=== PATIENT | male | born 2000 | race Caucasian/White ===

== ENCOUNTER 2019-11-13 08:08 | Observation (INO) | payer OTHER ==
[2019-11-13] MEDS ORDERED: NS 1,000 ML IV SCH (09:45)
[2019-11-13] MEDS ORDERED: ONDANSETRON 4MG/2ML VIAL IV PRN ×2 (09:45→18:45)
[2019-11-13] MEDS ORDERED: MORPHINE 2 MG/ML 1ML VIAL (J2270) IV PRN (09:45)
[2019-11-13] MEDS ORDERED: ONDANSETRON 4MG/2ML VIAL IV ONE (09:45)
[2019-11-13] MEDS ORDERED: MULT-4 PO (09:51)
--- NOTE | 2019-11-13 09:57 | REP ---
RIGHT WRIST, FOUR VIEWS: Four views of the right wrist are performed. There is a fracture of the distal radial shaft with medial displacement and anterior displacement. There is lateral angulation. Small calcific density distal to the ulna probably represents an old avulsion fracture. No other acute fracture or dislocation is seen. Electronically Signed by Arturo Mott MD 11/13/2019 04:39 P
--- NOTE | 2019-11-13 09:58 | REP ---
RIGHT FOREARM, TWO VIEWS: Two views of the right forearm performed. There is a fracture of the distal third of the radial shaft. There is medial displacement and lateral angulation. No other acute fracture or dislocation is seen. Electronically Signed by Arturo Mott MD 11/13/2019 04:39 P
[2019-11-13] MEDS: MORPHINE 2 MG/ML 1ML VIAL (J2270) IV PRN ×2 (09:59→12:17)
[2019-11-13] MEDS: NS 1,000 ML IV SCH ×3 (10:02→21:18)
--- NOTE | 2019-11-13 10:02 | REP ---
CT CERVICAL SPINE: CT cervical spine performed with sagittal and coronal reconstruction images. The vertebral bodies are normal in height and are well aligned with normal cervical lordosis. There is no prevertebral soft tissue swelling. Disc spaces are well preserved. No abnormal density is seen in the spinal canal. IMPRESSION: No evidence of acute fracture or dislocation. Electronically Signed by Arturo Mott MD 11/13/2019 04:39 P
[2019-11-13 10:36] LABS: BASO # 0.1 10^3/uL (0.0-0.2); BASO % 0.3 % (0.0-1.0); EOS % 0.1 % (0.0-3.0); HEMATOCRIT 44.2 % (42.0-52.0); HEMOGLOBIN 15.4 g/dl (13.5-17.5); LYMPH # 1.5 10^3/uL (1.5-5.0); LYMPH % 9.2 % (24.0-44.0); MEAN CORPUSCULAR HEMOGLOBIN 30.9 pg (27.0-33.0); MEAN CORPUSCULAR HGB CONC 34.8 g/dl (32.0-36.5); MEAN CORPUSCULAR VOLUME 88.8 fl (80.0-96.0); MONO # 0.8 10^3/uL (0.0-0.8); MONO % 5.3 % (0.0-5.0); NEUTROPHILS # 13.3 10^3/uL (1.5-8.5); NEUTROPHILS % 84.1 % (36.0-66.0); PLATELET COUNT, AUTOMATED 268 10^3/uL (150-450); RED BLOOD COUNT 4.98 10^6/uL (4.30-6.10); WHITE BLOOD COUNT 15.8 10^3/uL (4.0-10.0)
--- NOTE | 2019-11-13 10:53 | REP ---
CHEST, SINGLE VIEW: There is no evidence of acute infiltrate. No pleural effusion is seen. The heart is normal in size. The mediastinal silhouette is unremarkable. The visualized osseous structures are intact. IMPRESSION: No acute pulmonary disease. Electronically Signed by Arturo Mott MD 11/13/2019 04:40 P
--- NOTE | 2019-11-13 10:54 | REP ---
RIGHT ELBOW, FOUR VIEWS: Four views of the right elbow are performed. There is no acute fracture or dislocation at the elbow. Note is made of the fracture of the distal third of the radial shaft, which is displaced and angulated. IMPRESSION: No evidence of fracture at the elbow. There is a distal radial fracture. Electronically Signed by Arturo Mott MD 11/13/2019 04:40 P
[2019-11-13 11:00] LABS: BLOOD UREA NITROGEN 20 MG/DL (7-18); CALCIUM LEVEL 8.7 MG/DL (8.5-10.1); CARBON DIOXIDE LEVEL 29 MEQ/L (21-32); CHLORIDE LEVEL 106 MEQ/L (98-107); CREATININE FOR GFR 0.93 MG/DL (0.70-1.30); GLUCOSE, FASTING 100 MG/DL (70-100); SODIUM LEVEL 141 MEQ/L (136-145)
[2019-11-13 11:37] VITALS: BP 123/80
[2019-11-13] MEDS: oxyCODONE 5MG TAB PO PRN (12:16)
[2019-11-13 14:53] VITALS: BP 133/66
[2019-11-13] MEDS ORDERED: LIDOCAINE 2% 100MG/5ML SDV (FOR ANES.) As Ordered ONE (16:18)
[2019-11-13] MEDS ORDERED: propofoL 200 MG/20 ML VIAL As Ordered ONE ×2 (16:18→17:39)
[2019-11-13] MEDS ORDERED: fentaNYL 100 MCG/2 ML INJECTION (J3010) As Ordered ONE ×2 (16:19→18:58)
[2019-11-13] MEDS ORDERED: dexameTHASONE 4 MG/ML 1ML VIAL (J1100 PER 1MG) As Ordered ONE (16:19)
[2019-11-13] MEDS ORDERED: ONDANSETRON 4MG/2ML VIAL As Ordered ONE ×2 (16:19→18:58)
[2019-11-13] MEDS ORDERED: MIDAZOLAM INJ 2MG/2ML VIAL (J2250 PER 1MG) As Ordered ONE (16:19)
[2019-11-13] MEDS ORDERED: BUPIVACAINE/EPIN 0.25% 30 ML VIAL As Ordered ONE (17:04)
[2019-11-13] MEDS ORDERED: ceFAZolin 2 GM/D5W 50 ML IV BAG (J0690 PER 500MG) As Ordered ONE (17:04)
[2019-11-13] MEDS ORDERED: KETOROLAC 60 MG/2 ML VIAL As Ordered ONE (17:51)
[2019-11-13] MEDS ORDERED: ACETAMINOPHEN 1000MG 100ML IV BTL (OFIRMEV) (J0131 PER 10MG) As Ordered ONE (17:51)
[2019-11-13] MEDS ORDERED: PERCOCET 5MG/325MG TAB PO PRN (18:45)
[2019-11-13] MEDS ORDERED: HYDROMORPHONE HCL 0.5 MG/ 0.5 ML SYRINGE (J1170 PER 1) IV PRN (18:45)
[2019-11-13] MEDS ORDERED: LR 1,000 ML IV SCH (18:45)
[2019-11-13] MEDS ORDERED: fentaNYL 100 MCG/2 ML INJECTION (J3010) IV PRN (18:45)
[2019-11-13] MEDS ORDERED: MEPERIDINE INJ 25 MG/ML VIAL (J2175) As Ordered ONE (18:52)
[2019-11-13] MEDS ORDERED: MEPERIDINE INJ 25 MG/ML VIAL (J2175) IV PRN (19:00)
[2019-11-13] MEDS ORDERED: diphenhydrAMINE 50MG/ML VIAL (J1200) As Ordered ONE (19:05)
[2019-11-13] MEDS ORDERED: PERCOCET 5MG/325MG TAB As Ordered ONE (19:15)
[2019-11-13] MEDS ORDERED: diphenhydrAMINE 50MG/ML VIAL (J1200) IV SCH (19:30)
[2019-11-13 20:20] VITALS: BP 100/68
[2019-11-13 20:50] VITALS: BP 128/83
[2019-11-13 21:50] VITALS: BP 130/84
[2019-11-13 23:03] VITALS: BP 132/63
[2019-11-14] VITALS: BP 133/65
[2019-11-14] MEDS: ceFAZolin SOD 1 GM in D5W MINI-BAG PLUS 50 ML IV SCH ×3 (00:17→12:38)
[2019-11-14] MEDS: oxyCODONE 5MG TAB PO PRN ×2 (00:18→08:56)
[2019-11-14 01:00] VITALS: BP 132/62
--- NOTE | 2019-11-14 03:35 | CR ---
DATE OF CONSULTATION: 11/13/2019 CHIEF COMPLAINT: Right arm pain. HISTORY OF PRESENT ILLNESS: The patient states that he was on about a 15-foot tower when he had a fall. He broke his fall with his right arm. He immediately appreciated sharp pain that was 10/10. This was made worse with any sort of range of motion or movement and alleviated only with rest, immobilization, and pain medication. He denies any pain elsewhere, any numbness, tingling, fevers, or chills. Complete 10-system review was conducted, pertinent positives and negatives in history of present illness (HPI). All other systems negative. PAST MEDICAL HISTORY: None. PAST SURGICAL HISTORY: Closed reduction and casting to his right distal radius. MEDICATIONS: None. ALLERGIES: No known drug allergies. PHYSICAL EXAMINATION: Patient is awake, alert, oriented, well dressed, appropriate affect, breathing unlabored in room air. Normocephalic, atraumatic. Right upper extremity: Tender to palpation about the forearm. Pain with elbow and wrist range of motion. Positive anterior interosseous nerve (AIN), posterior interosseous nerve (PIN), and ulnar motor function. Sensation intact to light touch in superficial sensory branch of radial nerve, median nerve, ulnar nerve. Skin intact. Radial pulse 2+, regular rate. Diffuse swelling. Left upper extremity: No tenderness to palpation. Full range of motion of the shoulder, elbow, and wrist. Positive AIN, PIN, and ulnar motor function. Sensation intact to light touch superficial sensory branch of radial nerve, median nerve, ulnar nerve. Radial pulse 2+, regular rate. Skin intact. Bilateral lower extremities: No tenderness to palpation. Full active range of motion of the toes, ankles, and knees. Skin intact. Posterior tibial pulse 2+, regular rate. Positive extensor hallucis longus (EHL), flexor hallucis longus (FHL), tibia, and gastroc motor function. Sensation intact to light touch superficial peroneal, deep peroneal, sural, saphenous, and tibial distribution. IMAGING: Reviewed of the elbow, forearm, and wrist demonstrating a displaced radial shaft fracture. DIAGNOSIS: Right radial shaft fracture. I discussed with the patient that he has a right radial shaft fracture with a possible distal radioulnar joint (DRUJ) injury. This will have to be reassessed after fixation of the radial shift and need for possible fixation of the distal radioulnar joint. We discussed the risks and benefits of surgical intervention including, but not limited to, infection, damage to surrounding structures, incomplete relief. Patient wishes to proceed. Patient is admitted to my service. He is nothing by mouth and is nonweightbearing on the right upper extremity.
[2019-11-14 05:29] VITALS: BP 123/60
--- NOTE | 2019-11-14 06:46 | RO ---
DATE OF PROCEDURE: 11/13/2019 PREOPERATIVE DIAGNOSIS: Right radial shaft fracture. POSTOPERATIVE DIAGNOSIS: Right radial shaft fracture with radial ulnar joint injury. PROCEDURE: Right open reduction internal fixation radial shaft with pinning of the distal radial ulnar joint. SURGEON: Dr. Danie Bruce TIME STAMP ASSEMBLER: None. ANESTHESIA: General. COMPLICATIONS: None. PREOPERATIVE ANTIBIOTICS: 2 grams Ancef. ESTIMATED BLOOD LOSS: 10 mL. TOURNIQUET TIME: 45 minutes. INDICATIONS: 18-year-old male that suffered a injury after a fall from a tower. We discussed the risks of surgical intervention including, but not limited to infection, damage to surrounding structures, and incomplete relief. The patient wished to proceed. PROCEDURE DESCRIPTION: The patient was brought back to the operating room (OR) in the supine position and underwent general anesthesia, at which point, the right arm was prepped and draped in the usual fashion. A time confirming site, side, and surgery. Once all in agreement, we injected 20 mL of 0.25% Marcaine with epinephrine surrounding the incision. We then made a longitudinal incision overlying the flexor carpi radialis (FCR) tendon, sharply dissecting through subcutaneous tissue. We penetrated the superficial aspect of the FCR sheath, retracted it ulnarly and then released the distal extent as well, the deep extent, careful to identify and preserve the radial artery. We then retracted the flexor pollicis longus ulnarly as well. I encountered at this point the fracture site in the distal radius. We irrigated and debrided the sharply, at which point, we directly reduced the fracture using a point to point reduction clamp through two drill holes. We then placed an eight hole 3.5 LCP plate overlying the fracture and clamped the plate to bone. We then placed a compression screw on the distal extent of the radius in order to create an axilla. We then loaded the two subsequent cortical screws in the proximal extent of the shaft in compression mode. This further compressed the fracture. We had a reduction at this point and compression. We then placed one additional cortical screw proximally and one locking screw at the distal extent of the plate and one more cortical screw at the distal extent as well, three screws both proximal and distal to the fracture site. We took final films. We were happy with our reduction and fixation, at which point, we tested the distal radial ulnar joint (DRUJ) in both pronation and supination. It felt to be loose and subluxed, at which point, we then pinned the DRUJ in place with a 1.6 mm K-wire. We confirmed our wire placement on both AP and lateral. We were happy with this. We then irrigated the wound thoroughly and closed with #2-0 Vicryl and sherman. We bent and cut the wire. We dressed with Adaptic gauze, Webril and splint. The tourniquet was let down and the patient awakened and taken to the post anesthesia care unit (PACU) in stable condition. POSTOPERATIVE PLAN: The patient will work on finger range of motion, hand range of motion. Will see him in the office in 2 weeks for staple and suture removal. The pin will likely stay in place for approximately 6 weeks. The patient expressed understanding and agreement with the plan.
--- NOTE | 2019-11-14 08:27 | REP ---
RIGHT FOREARM DISTAL RADIUS: Four views. HISTORY: Open reduction internal fixation distal radius fracture. FINDINGS: A sequence of four last image hold fluoroscopically obtained spot radiographs of the right distal forearm documents screw plate fixation application to the distal radius. Anatomic alignment is seen. 26 seconds of fluoroscopy time is reported. Electronically Signed by Mohinder Kapadia MD 11/14/2019 08:32 A
[2019-11-14 10:30] VITALS: BP 128/68
[2019-11-14] MEDS ORDERED: OXYC-517 PO ×2 (12:39→12:45)
== END 2019-11-14 14:58 | disposition home or self-care (01) ==
LOC: M ED 08:08 → EDBD 08:08 → M ED INP 08:09 → ENRESERV 10:47 → M MS5PR 11:26
PROVIDERS: ADMIT Orthopaedic Surgery Hand Surgery; ATTEND Orthopaedic Surgery Hand Surgery
DX: S52.371A Galeazzi's fracture of right radius, initial encounter for closed fracture (principal); S63.011A Subluxation of distal radioulnar joint of right wrist, initial encounter; W17.89XA Other fall from one level to another, initial encounter; Y92.138 Other place on military base as the place of occurrence of the external cause; Y93.89 Activity, other specified; Y99.1 Military activity; Z87.891 Personal history of nicotine dependence; Z11.59 Encounter for screening for other viral diseases
CPT/HCPCS: 25526; 36415; 71045; 72125; 73080; 73090; 73110; 76000; 80048; 85025; 96365; 96366; 96375; 96376; 99284; C1713; J0131; J0690; J1100; J1200; J1885; J2175; J2250; J2270; J2405; U0002